=== PATIENT | female | born 1935 | race Caucasian/White ===

== ENCOUNTER 2016-10-15 12:16 | Emergency (ER) | payer MEDICARE ==
[~2016-10-15] VITALS: Ht 160 cm; Wt 44.5 kg
[~2016-10-15 12:16] MED LIST: ACET650T34 PO; ALBU8.5H5 INH; AMOX-291 PO; ASPI-515 PO; CITA10TA4 PO; DIGO250T PO; DILT180C72 PO; DOCU100T3 PO; HEPA50004 SQ; HYDR-3138 PO; LACT1CAP43 PO; LEVO250T8 PO; LEVO88TA4 PO; ONDA4TAB13 PO; POLY17PO5 PO; SIMV40TA3 PO
[2016-10-15] MEDS ORDERED: SODIUM CHLORIDE 0.9% 1,000ML IVBOLUS ONE (13:00)
[2016-10-15] MEDS ORDERED: SODIUM CHLORIDE FLUSH 10ML SYR IVF ONE (13:00)
[2016-10-15] MEDS ORDERED: FAMOTIDINE 20 MG/2 ML IVP ONE (13:00)
[2016-10-15] MEDS ORDERED: ONDANSETRON 2MG/ML, 2ML IVPush ONE (13:00)
[2016-10-15 13:32] LABS: BLOOD UREA NITROGEN 30 mg/dL (7-18)
[2016-10-15 13:36] LABS: ASPARTATE AMINO TRANSFERASE 23 U/L (15-37)
[2016-10-15 14:04] LABS: HEMOGLOBIN 12.2 g/dL (11.7-16.4)
[2016-10-15 14:05] LABS: DIFF TOTAL CELLS COUNTED 100 CELL DIFF
[2016-10-15 14:24] LABS: ANISOCYTOSIS 1+; VERIFY COUNTS? YES
[2016-10-15 14:27] LABS: SMUDGE CELLS 2+
[2016-10-15 14:29] LABS: HYPOCHROMIA 1+
[2016-10-15] MEDS ORDERED: ONDANSETRON 2MG/ML, 2ML ONE (15:37)
[2016-10-15] MEDS ORDERED: FAMOTIDINE 20 MG/2 ML ONE (15:37)
[2016-10-15] MEDS ORDERED: WARF3TAB7 PO (16:13)
[2016-10-15 17:11] VITALS: BP 117/55
== END 2016-10-15 17:14 | disposition home or self-care (01) ==
LOC: ED 17:08
DX: R11.2 Nausea with vomiting, unspecified (principal)
CPT/HCPCS: 36415; 71010; 80053; 81001; 83690; 85025; 85610; 96361; 96374; 96375; 99285; J2405; J7030; S0028

== ENCOUNTER → 2016-10-29 | Outpatient (CLI) | payer MEDICARE ==
[~2016-10-29] MED LIST changes: +WARF3TAB7 PO
== END | disposition home or self-care (01) ==
LOC: EDSTATUS 10-07 15:47 → ROC 09:10
PROVIDERS: ATTEND Radiology Radiation Oncology
DX: C4A Merkel cell carcinoma (principal)
CPT/HCPCS: G0463

== ENCOUNTER → 2017-03-13 | Outpatient (CLI) | payer MEDICARE ==
[~2017-03-13] MED LIST changes: +ACET-1770 PO; -ACET650T34 PO; -HYDR-3138 PO; +HYDR-3237 PO; +OMNIPAQUE 350 MG/ML, 150 ML BOTTLE ONE
== END | disposition home or self-care (01) ==
LOC: CFH 10:53
PROVIDERS: ATTEND Internal Medicine
DX: K44.9 Diaphragmatic hernia without obstruction or gangrene (principal); R16.1 Splenomegaly, not elsewhere classified; J98.11 Atelectasis; N28.1 Cyst of kidney, acquired; M50.30 Other cervical disc degeneration, unspecified cervical region; M48.54XD Collapsed vertebra, not elsewhere classified, thoracic region, subsequent encounter for fracture with routine healing; M48.56XD Collapsed vertebra, not elsewhere classified, lumbar region, subsequent encounter for fracture with routine healing; C4A.30 Merkel cell carcinoma of unspecified part of face; C4A.4 Merkel cell carcinoma of scalp and neck
CPT/HCPCS: 70491; 71260; 74177; Q9967

== ENCOUNTER 2017-03-14 07:16 | Inpatient (IN) | payer MEDICARE ==
[~2017-03-14] VITALS: Ht 160 cm; Wt 58.9 kg
[~2017-03-14 07:16] MED LIST changes: -OMNIPAQUE 350 MG/ML, 150 ML BOTTLE ONE
[2017-03-14] MEDS ORDERED: SODIUM CHLORIDE FLUSH 10ML SYR IVF ONE (07:30)
[2017-03-14] MEDS ORDERED: ONDANSETRON 2MG/ML, 2ML IVPush ONE (07:30)
[2017-03-14] MEDS ORDERED: SODIUM CHLORIDE 0.9% 1,000ML IVBOLUS ONE (07:30)
[2017-03-14] MEDS ORDERED: ONDANSETRON 2MG/ML, 2ML ONE (07:31)
[2017-03-14 08:07] LABS: ASPARTATE AMINO TRANSFERASE 20 U/L (15-37); BLOOD UREA NITROGEN 15 mg/dL (7-18)
[2017-03-14] MEDS ORDERED: METOCLOPRAMIDE 5 MG/ML, 2ML ONE (08:14)
[2017-03-14] MEDS ORDERED: DIPHENHYDRAMINE 50 MG/ML, 1ML ONE (08:14)
[2017-03-14] MEDS ORDERED: HYDROmorphone 1 MG/ML, 1ML ONE (08:14)
[2017-03-14 08:20] LABS: HEMATOCRIT 42.6 % (34.6-47.8); HEMOGLOBIN 14.6 g/dL (11.7-16.4)
[2017-03-14 08:43] LABS: WHITE BLOOD COUNT 146.4 x10^3/uL (3.4-10)
[2017-03-14 08:45] LABS: DIFF TOTAL CELLS COUNTED 100 CELL DIFF
[2017-03-14 08:46] LABS: ANISOCYTOSIS 1+; POIKILOCYTOSIS 1+; VERIFY COUNTS? YES
[2017-03-14 08:47] LABS: SMUDGE CELLS 2+
[2017-03-14] MEDS ORDERED: DIPHENHYDRAMINE 50 MG/ML, 1ML IVPush ONE (09:30)
[2017-03-14] MEDS ORDERED: HYDROmorphone 1 MG/ML, 1ML IV ONE (09:30)
[2017-03-14] MEDS ORDERED: METOCLOPRAMIDE 5 MG/ML, 2ML IVPush ONE (09:30)
[2017-03-14] MEDS ORDERED: DILTIAZEM 5 MG/ML, 5ML ONE (10:12)
[2017-03-14] MEDS ORDERED: DILTIAZEM 5 MG/ML, 5ML IVPush ONE (10:30)
[2017-03-14] MEDS: HEPARIN 5,000 UNITS/ML, 1ML SQ SCH ×2 (11:00→20:35)
[2017-03-14] MEDS ORDERED: morphine SULFATE 10 MG/ML, 1ML IVPush PRN (11:00)
[2017-03-14] MEDS ORDERED: DOCUSATE 100 MG CAPSULE PO PRN (11:00)
[2017-03-14] MEDS ORDERED: ONDANSETRON ODT 4 MG PO PRN (11:00)
[2017-03-14] MEDS ORDERED: ACETAMINOPHEN 325 MG TABLET PO PRN (11:00)
[2017-03-14] MEDS ORDERED: ENALAPRILAT 1.25 MG/ML, 2ML IVPush PRN (11:00)
[2017-03-14] MEDS ORDERED: PROMETHAZINE 25 MG/ML, 1ML IM PRN (11:00)
[2017-03-14] MEDS ORDERED: OMNIPAQUE 350 MG/ML, 100ML BOTTLE ONE (11:06)
[2017-03-14 12:10] VITALS: BP 163/56
[2017-03-14] MEDS: SODIUM CHLORIDE 0.9% 1,000 ML IV SCH ×2 (12:18→20:39)
[2017-03-14 14:05] VITALS: BP 156/86
[2017-03-14] MEDS: PANTOPRAZOLE 40 MG IV IVPush SCH (17:26)
[2017-03-14] MEDS: METOCLOPRAMIDE 5 MG/ML, 2ML IVPush PRN (17:27)
[2017-03-14 18:34] VITALS: BP_SYST 172; BP_SYST 175; BP_DIAS 89; BP_DIAS 98
[2017-03-14] MEDS: LABETALOL 5MG/ML, 20ML IVPush PRN (20:35)
[2017-03-14] MEDS: DILTIAZEM 90 MG CAP.ER.12H PO SCH (20:35)
[2017-03-14] MEDS: ONDANSETRON 2MG/ML, 2ML IVPush PRN (20:39)
[2017-03-15 00:40] VITALS: BP 158/85
[2017-03-15] MEDS: ONDANSETRON 2MG/ML, 2ML IVPush PRN (05:28)
[2017-03-15] MEDS: SODIUM CHLORIDE 0.9% 1,000 ML IV SCH ×2 (05:28→16:44)
[2017-03-15] MEDS: HEPARIN 5,000 UNITS/ML, 1ML SQ SCH ×3 (05:28→20:08)
[2017-03-15 05:43] LABS: BLOOD UREA NITROGEN 23 mg/dL (7-18)
[2017-03-15 05:54] LABS: ASPARTATE AMINO TRANSFERASE 27 U/L (15-37)
[2017-03-15 06:58] LABS: HEMATOCRIT 39.6 % (34.6-47.8); HEMOGLOBIN 12.8 g/dL (11.7-16.4)
[2017-03-15 07:01] LABS: DIFF TOTAL CELLS COUNTED 100 CELL DIFF
[2017-03-15 07:09] LABS: WHITE BLOOD COUNT 190.6 x10^3/uL (3.4-10)
[2017-03-15 07:12] LABS: VERIFY COUNTS? YES
[2017-03-15 07:13] LABS: ANISOCYTOSIS 1+; POIKILOCYTOSIS 1+
[2017-03-15 07:14] LABS: SMUDGE CELLS 2+
[2017-03-15 07:28] VITALS: BP 186/108
[2017-03-15] MEDS: PANTOPRAZOLE 40 MG IV IVPush SCH (08:05)
[2017-03-15] MEDS: DIGOXIN 0.25 MG TABLET PO SCH (08:05)
[2017-03-15] MEDS: LABETALOL 5MG/ML, 20ML IVPush PRN (08:06)
[2017-03-15] MEDS: METOCLOPRAMIDE 5 MG/ML, 2ML IVPush PRN (08:06)
[2017-03-15] MEDS: SENNA/DOCUSATE TABLET PO SCH (08:07)
[2017-03-15] MEDS: DILTIAZEM 90 MG CAP.ER.12H PO SCH ×2 (08:07→20:08)
[2017-03-15 09:40] VITALS: BP 168/93
[2017-03-15 15:36] VITALS: BP 142/76
[2017-03-15 18:43] VITALS: BP 135/78
[2017-03-16 01:15] VITALS: BP 120/72
[2017-03-16] MEDS ORDERED: PANTOPRAZOLE 40 MG IV IVPush ONE (02:00)
[2017-03-16] MEDS: SODIUM CHLORIDE 0.9% 1,000 ML IV SCH ×2 (03:17→22:33)
[2017-03-16] MEDS: HEPARIN 5,000 UNITS/ML, 1ML SQ SCH ×2 (05:00→13:40)
[2017-03-16 07:46] VITALS: BP 145/70
[2017-03-16 08:03] LABS: BLOOD UREA NITROGEN 34 mg/dL (7-18)
[2017-03-16] MEDS: ONDANSETRON 2MG/ML, 2ML IVPush PRN (08:12)
[2017-03-16] MEDS: PANTOPRAZOLE 40 MG IV IVPush SCH (08:18)
[2017-03-16] MEDS: DIGOXIN 0.25 MG TABLET PO SCH (08:18)
[2017-03-16] MEDS: SENNA/DOCUSATE TABLET PO SCH (08:19)
[2017-03-16] MEDS: DILTIAZEM 90 MG CAP.ER.12H PO SCH ×2 (08:20→21:00)
[2017-03-16 08:23] LABS: HEMATOCRIT 34.4 % (34.6-47.8); HEMOGLOBIN 12.1 g/dL (11.7-16.4)
[2017-03-16 08:24] LABS: DIFF TOTAL CELLS COUNTED 100 CELL DIFF
[2017-03-16 08:40] LABS: WHITE BLOOD COUNT 235.5 x10^3/uL (3.4-10)
[2017-03-16 08:42] LABS: ANISOCYTOSIS 1+; POIKILOCYTOSIS 1+; SMUDGE CELLS 3+; VERIFY COUNTS? YES
[2017-03-16] MEDS: AMPICILLIN/SULBACTAM 3 GM in SODIUM CHLORIDE 0.9% 100 ML IV SCH ×2 (12:19→18:40)
[2017-03-16 13:01] VITALS: BP 135/55
[2017-03-16 13:43] LABS: GASTRIC OCCULT BLD POSITIVE (NEGATIVE)
[2017-03-16 13:44] LABS: GAS OBC PASS; GASTRIC PH 3 (1-7)
[2017-03-16 14:23] LABS: OCCBLD OBC PASS
[2017-03-16] MEDS: PANTOPRAZOLE 80 MG in SODIUM CHLORIDE 0.9% 100 ML IV SCH (16:28)
[2017-03-16 19:47] VITALS: BP 125/67
[2017-03-17] MEDS: AMPICILLIN/SULBACTAM 3 GM in SODIUM CHLORIDE 0.9% 100 ML IV SCH ×5 (00:54→23:45)
[2017-03-17] MEDS: PANTOPRAZOLE 80 MG in SODIUM CHLORIDE 0.9% 100 ML IV SCH ×3 (00:56→22:16)
[2017-03-17 01:39] VITALS: BP 127/55
[2017-03-17 08:45] VITALS: BP 135/63
[2017-03-17] MEDS: DIGOXIN 0.25 MG TABLET PO SCH (09:02)
[2017-03-17] MEDS: DILTIAZEM 90 MG CAP.ER.12H PO SCH ×2 (09:02→20:37)
[2017-03-17] MEDS: SENNA/DOCUSATE TABLET PO SCH (09:02)
[2017-03-17 09:41] LABS: BLOOD UREA NITROGEN 29 mg/dL (7-18); HEMATOCRIT 29.1 % (34.6-47.8); HEMOGLOBIN 9.3 g/dL (11.7-16.4)
[2017-03-17 09:42] LABS: DIFF TOTAL CELLS COUNTED 100 CELL DIFF
[2017-03-17] MEDS: SODIUM CHLORIDE 0.9% 1,000 ML IV SCH ×2 (10:25→22:16)
[2017-03-17] MEDS ORDERED: ONDANSETRON ODT 4 MG PO PRN (11:00)
[2017-03-17] MEDS ORDERED: DOCUSATE 100 MG CAPSULE PO PRN (11:00)
[2017-03-17] MEDS ORDERED: ACETAMINOPHEN 325 MG TABLET PO PRN (11:00)
[2017-03-17] MEDS ORDERED: ENALAPRILAT 1.25 MG/ML, 2ML IVPush PRN (11:00)
[2017-03-17 11:06] LABS: WHITE BLOOD COUNT 86.6 x10^3/uL (3.4-10)
[2017-03-17 11:10] LABS: SMUDGE CELLS 3+; VERIFY COUNTS? YES
[2017-03-17 11:11] LABS: ANISOCYTOSIS 1+; MICROCYTOSIS 1+; POIKILOCYTOSIS 1+
[2017-03-17 12:36] VITALS: BP 135/55
[2017-03-17 19:52] VITALS: BP 127/62
[2017-03-18 01:51] VITALS: BP 150/67
[2017-03-18 04:59] LABS: BLOOD UREA NITROGEN 24 mg/dL (7-18)
[2017-03-18 05:14] LABS: HEMATOCRIT 28.7 % (34.6-47.8)
[2017-03-18 05:16] LABS: WHITE BLOOD COUNT 80.3 x10^3/uL (3.4-10)
[2017-03-18 05:55] LABS: DIFF TOTAL CELLS COUNTED 100 CELL DIFF
[2017-03-18] MEDS: AMPICILLIN/SULBACTAM 3 GM in SODIUM CHLORIDE 0.9% 100 ML IV SCH ×4 (06:03→23:52)
[2017-03-18 06:22] LABS: VERIFY COUNTS? YES
[2017-03-18 06:23] LABS: ANISOCYTOSIS 1+
[2017-03-18 06:25] LABS: POIKILOCYTOSIS 1+; SMUDGE CELLS 3+
[2017-03-18 07:33] VITALS: BP 146/73
[2017-03-18] MEDS: PANTOPRAZOLE 80 MG in SODIUM CHLORIDE 0.9% 100 ML IV SCH ×2 (08:17→19:12)
[2017-03-18] MEDS: SODIUM CHLORIDE 0.9% 1,000 ML IV SCH ×2 (08:17→18:31)
[2017-03-18] MEDS: DILTIAZEM 90 MG CAP.ER.12H PO SCH ×3 (08:22→20:19)
[2017-03-18] MEDS: SENNA/DOCUSATE TABLET PO SCH (08:22)
[2017-03-18] MEDS: DIGOXIN 0.25 MG TABLET PO SCH ×2 (08:22→13:07)
[2017-03-18] MEDS ORDERED: POTASSIUM CHLORIDE 40 MEQ in SODIUM CHLORIDE 0.9% 500 ML IV ONE (11:30)
[2017-03-18 12:20] VITALS: BP 174/92
[2017-03-18] MEDS: LORazepam 2 MG/ML, 1ML IVPush PRN ×2 (12:23→20:23)
[2017-03-18 13:56] VITALS: BP 108/71
[2017-03-18 21:19] VITALS: BP 118/63
[2017-03-19 02:10] VITALS: BP 116/67
[2017-03-19] MEDS: SODIUM CHLORIDE 0.9% 1,000 ML IV SCH ×2 (04:11→14:38)
[2017-03-19] MEDS: AMPICILLIN/SULBACTAM 3 GM in SODIUM CHLORIDE 0.9% 100 ML IV SCH ×3 (04:11→17:15)
[2017-03-19 05:19] LABS: BLOOD UREA NITROGEN 19 mg/dL (7-18)
[2017-03-19 05:21] LABS: HEMATOCRIT 30.8 % (34.6-47.8); HEMOGLOBIN 9.7 g/dL (11.7-16.4)
[2017-03-19 05:26] LABS: WHITE BLOOD COUNT 164.5 x10^3/uL (3.4-10)
[2017-03-19 06:34] LABS: DIFF TOTAL CELLS COUNTED 100 CELL DIFF
[2017-03-19 06:36] LABS: ANISOCYTOSIS 1+; POIKILOCYTOSIS 1+; VERIFY COUNTS? YES
[2017-03-19 07:21] VITALS: BP_SYST 125; BP_SYST 128; BP_DIAS 56; BP_DIAS 80
[2017-03-19] MEDS: DIGOXIN 0.25 MG TABLET PO SCH (08:28)
[2017-03-19] MEDS: SENNA/DOCUSATE TABLET PO SCH (08:28)
[2017-03-19] MEDS: DILTIAZEM 90 MG CAP.ER.12H PO SCH ×2 (08:28→19:34)
[2017-03-19] MEDS: PANTOPRAZOLE 80 MG in SODIUM CHLORIDE 0.9% 100 ML IV SCH (11:50)
[2017-03-19 13:00] VITALS: BP 124/55
[2017-03-19 15:23] VITALS: BP 99/48
[2017-03-19] MEDS: ASPIRIN 81 MG TABLET EC PO SCH (17:15)
[2017-03-19] MEDS: PANTOPRAZOLE 40 MG IV IVPush SCH (17:15)
[2017-03-19 18:44] LABS: HEMOGLOBIN 10.1 g/dL (11.7-16.4)
[2017-03-19 18:48] LABS: WHITE BLOOD COUNT 182.9 x10^3/uL (3.4-10)
[2017-03-19 19:04] VITALS: BP 126/64
[2017-03-19 19:28] LABS: DIFF TOTAL CELLS COUNTED 100 CELL DIFF
[2017-03-19] MEDS: LORazepam 2 MG/ML, 1ML IVPush PRN (19:35)
[2017-03-19 19:36] LABS: ANISOCYTOSIS 1+; POIKILOCYTOSIS 1+
[2017-03-19 19:37] LABS: VERIFY COUNTS? YES
[2017-03-20 00:02] VITALS: BP 116/52
[2017-03-20] MEDS: AMPICILLIN/SULBACTAM 3 GM in SODIUM CHLORIDE 0.9% 100 ML IV SCH ×3 (00:02→12:09)
[2017-03-20] MEDS: PANTOPRAZOLE 40 MG IV IVPush SCH (05:12)
[2017-03-20] MEDS: ASPIRIN 81 MG TABLET EC PO SCH (05:12)
[2017-03-20 05:36] LABS: HEMATOCRIT 32.5 % (34.6-47.8); HEMOGLOBIN 10.5 g/dL (11.7-16.4)
[2017-03-20 05:42] LABS: BLOOD UREA NITROGEN 16 mg/dL (7-18)
[2017-03-20 05:46] LABS: WHITE BLOOD COUNT 149.3 x10^3/uL (3.4-10)
[2017-03-20 06:17] LABS: DIFF TOTAL CELLS COUNTED 100 CELL DIFF
[2017-03-20 06:19] LABS: ANISOCYTOSIS 1+; VERIFY COUNTS? YES
[2017-03-20 06:20] LABS: POIKILOCYTOSIS 1+; SMUDGE CELLS 3+
[2017-03-20 07:42] VITALS: BP 126/56
[2017-03-20] MEDS: DIGOXIN 0.25 MG TABLET PO SCH (09:06)
[2017-03-20] MEDS: DILTIAZEM 90 MG CAP.ER.12H PO SCH ×2 (09:07→21:36)
[2017-03-20] MEDS: SENNA/DOCUSATE TABLET PO SCH (09:07)
[2017-03-20 14:12] VITALS: BP 130/65
[2017-03-20] MEDS ORDERED: FUROSEMIDE 40 MG/4 ML IV ONE (16:30)
[2017-03-20 17:36] LABS: IS PT STATUS REG ER OR PRE ER? NO
[2017-03-20] MEDS: PANTOPROZOLE 40MG TABLET PO SCH (17:42)
[2017-03-20] MEDS: LORazepam 2 MG/ML, 1ML IVPush PRN (17:43)
[2017-03-20] MEDS: MEGESTROL ACETATE 400 MG/10 ML ML PO SCH (17:43)
[2017-03-20 20:42] VITALS: BP 135/56
[2017-03-20] MEDS: ONDANSETRON 2MG/ML, 2ML IVPush PRN (21:36)
[2017-03-20 22:11] LABS: IS PT STATUS REG ER OR PRE ER? NO
[2017-03-21 02:35] VITALS: BP 129/54
[2017-03-21] MEDS: PANTOPROZOLE 40MG TABLET PO SCH ×2 (04:27→16:37)
[2017-03-21] MEDS: ASPIRIN 81 MG TABLET EC PO SCH (05:46)
[2017-03-21 06:45] VITALS: BP 125/57
[2017-03-21] MEDS ORDERED: REGADENOSON 0.4 MG/5 ML SYRINGE ONE (08:23)
[2017-03-21] MEDS: SENNA/DOCUSATE TABLET PO SCH (10:10)
[2017-03-21] MEDS: DIGOXIN 0.25 MG TABLET PO SCH (10:10)
[2017-03-21] MEDS: MEGESTROL ACETATE 400 MG/10 ML ML PO SCH (10:11)
[2017-03-21] MEDS: DILTIAZEM 90 MG CAP.ER.12H PO SCH ×2 (10:11→20:59)
[2017-03-21 13:30] LABS: HEMATOCRIT 32.3 % (34.6-47.8); HEMOGLOBIN 10.1 g/dL (11.7-16.4)
[2017-03-21 13:34] LABS: DIFF TOTAL CELLS COUNTED 100 CELL DIFF; WHITE BLOOD COUNT 97.5 x10^3/uL (3.4-10)
[2017-03-21 13:36] LABS: VERIFY COUNTS? YES
[2017-03-21 13:37] LABS: ANISOCYTOSIS 1+; POIKILOCYTOSIS 1+
[2017-03-21 13:38] LABS: SMUDGE CELLS 3+
[2017-03-21 13:44] VITALS: BP 127/58
[2017-03-21 19:26] VITALS: BP 119/44
[2017-03-21] MEDS: LORazepam 2 MG/ML, 1ML IVPush PRN (23:51)
[2017-03-22 01:20] VITALS: BP 124/61
[2017-03-22] MEDS: PANTOPROZOLE 40MG TABLET PO SCH (04:30)
[2017-03-22] MEDS: ASPIRIN 81 MG TABLET EC PO SCH (05:18)
[2017-03-22 05:32] LABS: BLOOD UREA NITROGEN 11 mg/dL (7-18)
[2017-03-22 05:36] LABS: HEMATOCRIT 31.2 % (34.6-47.8); HEMOGLOBIN 9.8 g/dL (11.7-16.4)
[2017-03-22 06:06] LABS: DIFF TOTAL CELLS COUNTED 100 CELL DIFF
[2017-03-22 06:08] LABS: VERIFY COUNTS? YES
[2017-03-22 06:09] LABS: ANISOCYTOSIS 1+
[2017-03-22 06:10] LABS: POIKILOCYTOSIS 1+; SMUDGE CELLS 3+
[2017-03-22] MEDS ORDERED: ASPI-621 PO (08:15)
[2017-03-22] MEDS ORDERED: MULT-257 PO (08:15)
[2017-03-22] MEDS ORDERED: CHOL200040 PO (08:15)
[2017-03-22] MEDS ORDERED: PANT40TA5 PO (08:15)
[2017-03-22] MEDS ORDERED: MEGE400O4 PO (08:15)
[2017-03-22] MEDS ORDERED: DOCU-131 PO (08:15)
[2017-03-22] MEDS ORDERED: ONDA4TAB7 PO (08:20)
[2017-03-22] MEDS ORDERED: ALPR0.25 PO (08:20)
[2017-03-22] MEDS ORDERED: POTASSIUM CHLORIDE 40 MEQ in SODIUM CHLORIDE 0.9% 500 ML IV ONE (08:30)
[2017-03-22 08:52] VITALS: BP 124/52
[2017-03-22] MEDS ORDERED: CHOLECALCIFEROL 1,000 UNIT TABLET PO SCH (09:00)
[2017-03-22] MEDS: SENNA/DOCUSATE TABLET PO SCH (09:07)
[2017-03-22] MEDS: MEGESTROL ACETATE 400 MG/10 ML ML PO SCH (09:08)
[2017-03-22] MEDS: DILTIAZEM 90 MG CAP.ER.12H PO SCH (09:08)
[2017-03-22] MEDS: DIGOXIN 0.25 MG TABLET PO SCH (09:08)
[2017-03-22 14:30] VITALS: BP 122/53
== END 2017-03-22 15:34 | DRG 380 ==
LOC: ED 09:00 → EDIP 09:46 → INTOOBSV 09:46 → 4WST 11:41 → OBSVTOIN 03-16 09:46
PROVIDERS: ADMIT Internal Medicine; ATTEND Internal Medicine
DX: K31.1 Adult hypertrophic pyloric stenosis (principal); J69.0 Pneumonitis due to inhalation of food and vomit; J96.00 Acute respiratory failure, unspecified whether with hypoxia or hypercapnia; E44.0 Moderate protein-calorie malnutrition; C91.10 Chronic lymphocytic leukemia of B-cell type not having achieved remission; D68.59 Other primary thrombophilia; I50.9 Heart failure, unspecified; K44.0 Diaphragmatic hernia with obstruction, without gangrene; I48.0 Paroxysmal atrial fibrillation; Z68.23 Body mass index [BMI] 23.0-23.9, adult; Z96.641 Presence of right artificial hip joint; K20.9 Esophagitis, unspecified; I35.8 Other nonrheumatic aortic valve disorders; I34.0 Nonrheumatic mitral (valve) insufficiency; E78.5 Hyperlipidemia, unspecified; I48.2 Chronic atrial fibrillation; E03.9 Hypothyroidism, unspecified; Z79.82 Long term (current) use of aspirin; Z80.0 Family history of malignant neoplasm of digestive organs; Z85.819 Personal history of malignant neoplasm of unspecified site of lip, oral cavity, and pharynx; Z82.49 Family history of ischemic heart disease and other diseases of the circulatory system; Z91.81 History of falling; Z85.821 Personal history of Merkel cell carcinoma
CPT/HCPCS: 36415; 70450; 71010; 71275; 74000; 74241; 78452; 80048; 80053; 80162; 81001; 82271; 82272; 82306; 82607; 83605; 83690; 83735; 84100; 84439; 84443; 84484; 85018; 85025; 85651; 86141; 87040; 87086; 87324; 93005; 93017; 93306; 96374; 96375; 96376; G0378; J0295; J1170; J1644; J1940; J2405; J2550; J2785; J3480; Q9967; A9502; C9113; C9898; J1200; J2060; J2270; J2765; J7030; J7040

== ENCOUNTER → 2017-04-12 | Outpatient (CLI) | payer MEDICARE ==
[~2017-04-12] MED LIST changes: +ALPR0.25 PO; +ASPI-621 PO; +CHOL200040 PO; +DOCU-131 PO; +MEGE400O4 PO; +MULT-257 PO; +ONDA4TAB7 PO; +PANT40TA5 PO
== END | disposition home or self-care (01) ==
LOC: RAD 13:48
PROVIDERS: ATTEND Physician Assistant Medical
DX: R16.1 Splenomegaly, not elsewhere classified (principal)
CPT/HCPCS: 76700

== ENCOUNTER → 2018-04-29 | Outpatient (CLI) | payer MEDICARE ==
[~2018-04-29] MED LIST changes: +OMNIPAQUE 350 MG/ML, 100ML BOTTLE ONE; +WARF3TAB52 PO; -WARF3TAB7 PO
== END | disposition home or self-care (01) ==
LOC: CFH 11:44
PROVIDERS: ATTEND Internal Medicine
DX: K76.0 Fatty (change of) liver, not elsewhere classified (principal); J90 Pleural effusion, not elsewhere classified; I65.03 Occlusion and stenosis of bilateral vertebral arteries; K44.9 Diaphragmatic hernia without obstruction or gangrene; I25.10 Atherosclerotic heart disease of native coronary artery without angina pectoris; R16.1 Splenomegaly, not elsewhere classified; C4A.30 Merkel cell carcinoma of unspecified part of face
CPT/HCPCS: 71260; 74177; Q9967

== ENCOUNTER → 2020-02-09 | Outpatient (CLI) | payer MEDICARE ==
[~2020-02-09] MED LIST changes: -ASPI-621 PO; +ASPI81TA45 PO; -DIGO250T PO; +DIGO250T3 PO; -OMNIPAQUE 350 MG/ML, 100ML BOTTLE ONE; +SIMV40TA20 PO; -SIMV40TA3 PO
[2020-02-09 17:15] LABS: ALANINE AMINOTRANSFERASE 15 U/L (12-78); ALBUMIN 3.9 g/dL (3.4-5.0); ANION GAP 4 mmol/L (5-15); CALCIUM 8.5 mg/dL (8.5-10.1); CHLORIDE 107 mmol/L (98-107); CHOLESTEROL, TOTAL 179 mg/dL (140-239); CREATININE 0.86 mg/dL (0.55-1.02)
[2020-02-09 17:18] LABS: ALKALINE PHOSPHATASE 78 U/L (45-117); BILIRUBIN,TOTAL 0.9 mg/dL (0.2-1.0); CHOL/HDL RATIO 3.1; HDL CHOL % 32 % (28-40); HDL CHOLESTEROL (DIRECT) 57 mg/dL (40-60); LDL CHOLESTEROL,CALCULATED 105 mg/dL (54-169); LDL/HDL RATIO 1.8 (0.5-3.0); MEAN CORPUSCULAR VOLUME 93.7 fL (80-100); MEAN PLATELET VOLUME 7.7 fL (7.4-10.4); PLATELET COUNT 141 x10^3/uL (130-400); RED BLOOD COUNT 4.79 x10^6/uL (3.82-5.3); RED CELL DISTRIBUTION WIDTH 14.3 % (9.6-15.2); TOTAL PROTEIN 7.5 g/dL (6.4-8.2); TRIGLYCERIDES 85 mg/dL (50-200); VLDL CHOLESTEROL 17 mg/dL (0-25)
[2020-02-09 17:20] LABS: MD YES
[2020-02-09 17:23] LABS: EOS#(MANUAL) 0.68 x10^3/uL (0.0-0.4); EOS% (MANUAL) 1 % (1-7); LYMPH#(MANUAL) 61.02 x10^3/uL (1-3.4); LYMPHS% (MANUAL) 90 % (22-44); MONOS#(MANUAL) 0.68 x10^3/uL (0.3-2.7); MONOS% (MANUAL) 1 % (2-9); SEG#(MANUAL) 5.42 x10^3/uL (1.8-6.8); SEGS% (MANUAL) 8 % (42-75)
[2020-02-09 17:35] LABS: <PLATELET ESTIMATE> ADEQUATE; <PLT MORPHOLOGY> NORMAL PLT MORPH; ANISOCYTOSIS 1+; STOMATOCYTES 1+
== END | disposition home or self-care (01) ==
LOC: CFH 12:13 → EDSTATUS 13:00
PROVIDERS: ATTEND Internal Medicine Cardiovascular Disease
DX: I08.3 Combined rheumatic disorders of mitral, aortic and tricuspid valves (principal); I10 Essential (primary) hypertension; E03.9 Hypothyroidism, unspecified; E78.5 Hyperlipidemia, unspecified; Z79.01 Long term (current) use of anticoagulants
CPT/HCPCS: 36415; 80053; 80061; 85025; 93306

== ENCOUNTER → 2020-03-15 | Outpatient (CLI) | payer MEDICARE ==
[~2020-03-15] MED LIST changes: +OMNIPAQUE 350 MG/ML, 100ML BOTTLE ONE; -PANT40TA5 PO; +PANT40TA6 PO
== END | disposition home or self-care (01) ==
LOC: CFH 13:14
PROVIDERS: ATTEND Internal Medicine
DX: C91.10 Chronic lymphocytic leukemia of B-cell type not having achieved remission (principal); C4A.30 Merkel cell carcinoma of unspecified part of face; D69.6 Thrombocytopenia, unspecified; K44.9 Diaphragmatic hernia without obstruction or gangrene; M43.8X5 Other specified deforming dorsopathies, thoracolumbar region; I86.8 Varicose veins of other specified sites; I25.10 Atherosclerotic heart disease of native coronary artery without angina pectoris; I70.0 Atherosclerosis of aorta; J98.4 Other disorders of lung; M85.88 Other specified disorders of bone density and structure, other site
CPT/HCPCS: 71260; 74177; Q9967

== ENCOUNTER → 2020-09-15 | Outpatient (CLI) | payer MEDICARE ==
[~2020-09-15] MED LIST changes: -ASPI-515 PO; +ASPI-963 PO
== END | disposition home or self-care (01) ==
LOC: CFH 12:26
PROVIDERS: ATTEND Internal Medicine
DX: C4A.30 Merkel cell carcinoma of unspecified part of face (principal); J84.10 Pulmonary fibrosis, unspecified
CPT/HCPCS: 71260; 74177; Q9967